=== PATIENT | male | born 1995 | race American Indian/Alaskan Native ===

== ENCOUNTER 2017-08-23 10:54 | Emergency (ER) | payer BC ==
[2017-08-23 11:54] VITALS: BP 128/77
== END 2017-08-23 14:09 | disposition left against medical advice (07) ==
LOC: ED 10:54
DX: G43.909 Migraine, unspecified, not intractable, without status migrainosus (principal); Z53.21 Procedure and treatment not carried out due to patient leaving prior to being seen by health care provider